=== PATIENT | male | born 1995 | race Caucasian/White ===

== ENCOUNTER 2021-06-09 16:06 | Emergency (ER) | payer SELFPAY ==
[~2021-06-09] VITALS: Ht 177.8 cm; Wt 88.6 kg
[~2021-06-09 16:06] MED LIST: LIDOcaine 1% W/epiNEPHrine 1:100,000 20ml vial ONE
[2021-06-09 16:16] VITALS: BP 118/65
[2021-06-09] MEDS ORDERED: TETanus/Pertussis (Acell)/Diphther VAC/PF (Tdap-Adult) 0.5ml syringe IMVAC ONE (16:25)
[2021-06-09] MEDS ORDERED: LIDOcaine 1% W/epiNEPHrine 1:200,000 10ml vial IJ ONE (16:25)
[2021-06-09] MEDS ORDERED: CEFD300C3 PO (17:33)
== END 2021-06-09 18:16 | disposition home or self-care (01) ==
LOC: ER 16:08
DX: S81.812A Laceration without foreign body, left lower leg, initial encounter (principal); Z79.2 Long term (current) use of antibiotics; Z20.3 Contact with and (suspected) exposure to rabies; X58.XXXA Exposure to other specified factors, initial encounter; Y93.89 Activity, other specified; Y92.89 Other specified places as the place of occurrence of the external cause; Y99.8 Other external cause status
CPT/HCPCS: 12004; 90471; 90715; 99283